=== PATIENT | female | born 2000 | race Hispanic/Latino ===

== ENCOUNTER 2022-04-08 19:41 | Emergency (ER) | payer SELFPAY ==
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
[2022-04-09 09:11] VITALS: BP 114/86
== END 2022-04-09 09:25 | disposition home or self-care (01) ==
LOC: ED 19:41
DX: Z13.30 Encounter for screening examination for mental health and behavioral disorders, unspecified (principal); Z59.00 Homelessness unspecified
CPT/HCPCS: 99282